=== PATIENT | male | born 1930 | race Caucasian/White ===

== ENCOUNTER 2017-10-18 09:27 | Emergency (ER) | payer MEDICARE ==
[~2017-10-18] VITALS: Ht 172.7 cm; Wt 71.0 kg
[2017-10-18 09:37] VITALS: BP 141/63; PULSE 92; RESP 16; TEMP 98.4; O2SAT 95
[2017-10-18] MEDS ORDERED: ASPI81TA23 PO (10:07)
[2017-10-18] MEDS ORDERED: CALCTAB94 PO (10:07)
[2017-10-18] MEDS ORDERED: OMEP20TA93 PO (10:07)
[2017-10-18] MEDS ORDERED: TRIBTAB9 PO (10:07)
[2017-10-18] MEDS ORDERED: VITA1000 PO (10:07)
[2017-10-18] MEDS ORDERED: SIMV40TA PO (10:07)
--- NOTE | 2017-10-18 10:11 | PD ---
HPI Chief Complaint: Injury Time Seen by Provider: 10:01 Travel History International Travel<30 days: No Contact w/Intl Traveler<30days: No Traveled to known affect area: No History of Present Illness HPI 87-year-old male presents to the emergency department for evaluation of right shoulder injury that occurred during a fall yesterday morning. Patient states he was getting out of the shower was holding onto the towel bar when the towel bar broke causing him to fall. Patient denies any head injury or LOC. No neck pain or back pain. No chest pain or abdominal pain. No nausea, vomiting, diarrhea. He has been ambulatory since the fall. He denies being on anticoagulants. Movement of the right shoulder will exacerbate pain. Moderate severity. No alleviating factors. PFSH Social History Alcohol Use: No Tobacco Use: No Substance Use: No Allergies-Medications (Allergen,Severity, Reaction): Coded Allergies: No Known Allergies (Unverified , 10/18/17) Reported Meds & Prescriptions Reported Meds & Active Scripts Active Reported Calcium 600 (Calcium Carbonate) 600 Mg Calcium (1500 Mg) Tab 600 Mg PO DAILY Vitamin D-1000 (Cholecalciferol) 1,000 Unit Tab 1,000 Units PO DAILY Aspirin EC (Aspirin) 81 Mg Tabdr 81 Mg PO DAILY Tribenzor (Nvtxplrdss-Wxtlbgnvnr-Xrkgepcpemfbuenbuwl) 40-10-25 mg Tab 1 Tab PO DAILY Simvastatin 40 Mg Tab 40 Mg PO HS Omeprazole 20 Mg Tab 20 Mg PO DAILY Review of Systems Except as stated in HPI: all other systems reviewed are Neg Physical Exam Narrative GENERAL: Well-nourished, well-developed elderly male patient, afebrile. SKIN: Focused skin assessment warm/dry. HEAD: Normocephalic. Atraumatic. ENT: Mucosa pink and moist. No erythema or exudates. No uvular edema. No uvular , palatal, or tonsillar deviation. Airway patent. Nasal turbinates appear normal without nasal blood, purulent drainage or septal hematoma. Bilateral tympanic membranes are clear without erythema or perforation. EYES: No scleral icterus. No injection or drainage. NECK: Supple, trachea midline. No JVD or lymphadenopathy. CARDIOVASCULAR: Regular rate and rhythm without murmurs, gallops, or rubs. Right radial pulses 2+. RESPIRATORY: Breath sounds equal bilaterally. No accessory muscle use. Lungs sounds are clear to auscultation. GASTROINTESTINAL: Abdomen soft, non-tender, nondistended. MUSCULOSKELETAL: No cyanosis, or edema. Patient has tenderness over right humeral head. He has reduced range of motion due to pain. BACK: Nontender without obvious deformity. No CVA tenderness. Data Data Last Documented VS Vital Signs Date Time Temp Pulse Resp B/P (MAP) Pulse Ox O2 Delivery O2 Flow Rate FiO2 10/18/17 09:37 98.4 92 16 141/63 (89) 95 Orders Orders Shoulder, Complete (>2vws) (10/18/17 09:40) Acetamin-Hydrocod 325-5 Mg (Ione 5-325 (10/18/17 10:15) MDM Medical Decision Making Medical Screen Exam Complete: Yes Emergency Medical Condition: Yes Medical Record Reviewed: Yes Interpretation(s) x-ray right shoulder - CONCLUSION: Nondisplaced fracture of the acromion. Differential Diagnosis Fracture versus dislocation versus contusion versus sprain Narrative Course 87-year-old presents to the emergency department for evaluation of right shoulder injury that occurred yesterday morning when he fell. X-ray of the right shoulder is ordered and pending. Patient is given Ione 5/325 mg by mouth for pain. X-ray of the right shoulder shows a nondisplaced fracture of the acromion. Patient is placed in a sling. He is instructed to follow-up with an orthopedist. He'll be given the name and number for orthopedist on-call today. He will be given a short-term prescription for Lortab for pain. He verbalizes agreement and understanding. The patient was discharged in stable condition with instructions, including return instructions and follow up instructions. Diagnosis Primary Impression: Nondisplaced fracture of right acromial process Qualified Codes: S42.124A - Nondisplaced fracture of acromial process, right shoulder, initial encounter for closed fracture Referrals: Lilly Awad MD call for appointment Orthopedist call for appointment Patient Instructions: Arm Fracture in Adults (ED), General Instructions Additional Instructions: Wear sling. Ice for 20 minutes 4-5 times daily. Take Ione as directed as needed for pain. Caution this can make you drowsy so do not drive after taking. Follow-up with an orthopedist. Dr. Awad is our orthopedist conference manager today. Return to the emergency department for any acute worsening of symptoms. Med/Other Pt SpecificInfo: Prescription(s) given Scripts Hydrocodone-Acetaminophen (Ione) 5 Mg-325 Mg Tab 1 TAB PO Q6H Y for PAIN, #12 TAB 0 Refills Prov: Rosemarie Abraham 10/18/17 Disposition: 01 DISCHARGE HOME Condition: Stable Rosemarie Abraham Oct 18, 2017 10:11
[2017-10-18] MEDS ORDERED: ACETAMINOPHEN/HYDROcodone 325 MG/5 MG TAB PO ONE (10:15)
--- NOTE | 2017-10-18 11:02 | RADRPT ---
EXAM DATE/TIME: 10/18/2017 10:34 [facility] COMPARISON: No previous studies available for comparison. INDICATIONS : Fell, right shoulder pain, limited ROM, unable to lift arm MEDICAL HISTORY : Polio SURGICAL HISTORY : None. ENCOUNTER: Initial ACUITY: 1 day PAIN SCORE: 5/10 LOCATION: Right shoulder FINDINGS: Multiple views of the right shoulder demonstrate a nondisplaced fracture involving the acromion. Mode rate adjacent soft tissue edema. There is normal glenohumeral alignment. The bones are normal in mine ralization. CONCLUSION: Nondisplaced fracture of the acromion. Jill Dillon MD on October 18, 2017 at 10:59 Board Certified Radiologist. This report was verified electronically.
[2017-10-18] MEDS ORDERED: NORC5TAB PO (11:15)
== END 2017-10-18 11:28 | disposition home or self-care (01) ==
LOC: PHEFT 09:27
DX: S42.124A Nondisplaced fracture of acromial process, right shoulder, initial encounter for closed fracture (principal); W19.XXXA Unspecified fall, initial encounter; Y92.89 Other specified places as the place of occurrence of the external cause; Z79.82 Long term (current) use of aspirin
CPT/HCPCS: 73030; 99283

== ENCOUNTER 2017-10-27 17:36 | Emergency (ER) | payer MEDICARE ==
[~2017-10-27] VITALS: Ht 172.7 cm; Wt 71.0 kg
[~2017-10-27 17:36] MED LIST: ASPI81TA23 PO; CALCTAB94 PO; NORC5TAB PO; OMEP20TA93 PO; SIMV40TA PO; TRIBTAB9 PO; VITA1000 PO
[2017-10-27 17:39] VITALS: BP 139/66; PULSE 79; RESP 17; TEMP 98.5; O2SAT 96
--- NOTE | 2017-10-27 18:07 | PD ---
HPI Chief Complaint: Pain: Acute or Chronic Time Seen by Provider: 18:00 Travel History International Travel<30 days: No Contact w/Intl Traveler<30days: No Traveled to known affect area: No History of Present Illness HPI Patient comes to the emergency department complaining of right wrist pain on the ulnar aspect described as an irritation. Patient reports this started approximately 2-3 days after wearing a sling from a right shoulder fracture. Patient denies anything making this better or worse. Patient has tried using ice and heat with no improvement of symptoms. Denies any fevers or radiation of the pain. Denies any known trauma. Denies any numbness or tingling or decreased range of motion of the ordinary. Patient does report some decreased range of motion with his right thumb secondary to polio. PFSH Past Medical History High Cholesterol: Yes Diminished Hearing: No GERD: Yes Hypertension: Yes Musculoskeletal: Yes (POLIO) ?: Not Past Surgical History Abdominal Surgery: Yes (HERNIA) Social History Alcohol Use: No Tobacco Use: No Substance Use: No Allergies-Medications (Allergen,Severity, Reaction): Coded Allergies: No Known Allergies (Unverified , 10/27/17) Reported Meds & Prescriptions Reported Meds & Active Scripts Active [place] (Hydrocodone-Acetaminophen) 5 Mg-325 Mg Tab 1 Tab PO Q6H PRN Reported Calcium 600 (Calcium Carbonate) 600 Mg Calcium (1500 Mg) Tab 600 Mg PO DAILY Vitamin D-1000 (Cholecalciferol) 1,000 Unit Tab 1,000 Units PO DAILY Aspirin EC (Aspirin) 81 Mg Tabdr 81 Mg PO DAILY Tribenzor (Nfuqbgcwdn-Dijekfsugj-Eovpqggelvfadrhsbgt) 40-10-25 mg Tab 1 Tab PO DAILY Simvastatin 40 Mg Tab 40 Mg PO HS Omeprazole 20 Mg Tab 20 Mg PO DAILY Review of Systems Except as stated in HPI: all other systems reviewed are Neg Physical Exam Narrative GENERAL: Well-developed, well nourished, in no acute distress, and non-ill appearing. SKIN: Focused skin assessment warm and dry. Patient reports tenderness palpation over ulnar aspect of the right wrist. Neurovascularly intact distally. Reports range of motion is normal for him. Capillary refill less than 2 seconds. No crepitus, induration, or erythematous. No signs of infection. HEAD: Atraumatic. Normocephalic. EYES: Pupils equal and round. EOMI. No scleral icterus. No injection or drainage. ENT: No nasal bleeding or discharge. Mucous membranes pink and moist. NECK: Trachea midline. Supple. No nuclear rigidity. CARDIOVASCULAR: Radial pulses 2+, intact, and equal bilaterally. Capillary refill less than 2 seconds. RESPIRATORY: No accessory muscle use. No respiratory distress. MUSCULOSKELETAL: No obvious deformities. No clubbing. No cyanosis. No edema. Decreased range of motion right shoulder secondary to recent fracture. NEUROLOGICAL: Awake and alert. No obvious cranial nerve deficits. Motor grossly within normal limits. Normal speech. PSYCHIATRIC: Appropriate mood and affect; insight and judgment normal. Data Data Last Documented VS Vital Signs Date Time Temp Pulse Resp B/P (MAP) Pulse Ox O2 Delivery O2 Flow Rate FiO2 10/27/17 17:39 98.5 79 17 139/66 (90) 96 Orders Orders Wrist, Complete ([id number]) (10/27/17 ) Ed Discharge Order (10/27/17 19:16) MDM Medical Decision Making Medical Screen Exam Complete: Yes Emergency Medical Condition: Yes Interpretation(s) Last Impressions Wrist X-Ray 10/27/17 0000 Signed Impressions: Service Date/Time: Friday, October 27, 2017 18:37 - CONCLUSION: Arthritic changes and mild erosions involving the wrist as described. No acute bony findings Sohan Khoury MD Differential Diagnosis Fracture, strain, contusion, irritation Narrative Course There is no clinical evidence for fracture. There is no clinical evidence to suspect bony injury by exam. Radiographic examination revealed no fracture seen at this time. No obvious ligamental injury or internal derangement is noted at this time. The distal extremity appears neurovascularly intact, without evidence of neurovascular injury nor compartment syndrome. Tendon exam also was intact. The patient was discharged and given warnings for vascular compromise. The patient is to follow up with primary care provider and/or orthopedics. The patient agrees with plan. Patient in no obvious distress upon re-evaluation. All pertinent Radiology result(s) discussed with patient/family. Any questions/concerns in reference to patient diagnosis/condition discussed and clarified prior to patient's discharge. Reinforced sheer importance of close follow up with patient's primary physician or primary care clinic and/or orthopedic. Instructed patient to return to ED immediately, if symptoms return/worsen. Patient showed understanding of above instructions. Further instructions and recommendations were detailed in discharge paperwork. Patient ambulated without difficulty out of ED at discharge. Diagnosis Primary Impression: Right wrist pain Patient Instructions: Arthralgia (ED), General Instructions Additional Instructions: Follow-up with your primary care physician and/or orthopedics this week for reevaluation. Put some padding between your wrist and the sling. Return to the emergency department if symptoms get worse. Disposition: 01 DISCHARGE HOME Condition: Stable Gael Gil Oct 27, 2017 18:07
--- NOTE | 2017-10-27 19:12 | RADRPT ---
EXAM DATE/TIME: 10/27/2017 18:37 [facility] COMPARISON: No previous studies available for comparison. INDICATIONS : Complains of right wrist pain and swelling. Patient states hurt right shoulder last week and now com [place] of wrist pain. MEDICAL HISTORY : None. SURGICAL HISTORY : None. ENCOUNTER: Initial ACUITY: 1 week PAIN SCORE: 8/10 LOCATION: Right wrist FINDINGS: Chondrocalcinosis is noted. There is a tiny erosion involving the tip of the ulnar styloid and sclero ton change in the lunate at the scapholunate articulation. The bony elements are otherwise intact. T here is no evidence of fracture or dislocation. CONCLUSION: Arthritic changes and mild erosions involving the wrist as described. No acute bony findings Sohan Khoury MD on October 27, 2017 at 19:09 Board Certified Radiologist. This report was verified electronically.
== END 2017-10-27 19:31 | disposition home or self-care (01) ==
LOC: PHEFT 17:36
DX: M25.531 Pain in right wrist (principal); E78.00 Pure hypercholesterolemia, unspecified; I10 Essential (primary) hypertension; K21.9 Gastro-esophageal reflux disease without esophagitis; Z86.12 Personal history of poliomyelitis
CPT/HCPCS: 73110; 99283

== ENCOUNTER 2017-11-01 09:09 | Inpatient (IN) | payer MEDICARE, OTHER ==
[~2017-11-01] VITALS: Ht 172.7 cm; Wt 69.9 kg
[2017-11-01] VITALS (8 sets, daily range): BP systolic 112–157; BP diastolic 62–73; PULSE 75–90; RESP 16–20; TEMP 97–98.4; O2SAT 93–96
[2017-11-01] MEDS ORDERED: DOXY100C PO (10:56)
[2017-11-01 11:33] LABS: AUTOMATED NEUTROPHIL # 12.2 TH/MM3 (1.8-7.7); BASOPHIL # 0.1 TH/MM3 (0-0.2); BASOPHIL % 0.4 % (0.0-2.0); EOSINOPHIL # 0.1 TH/MM3 (0-0.4); EOSINOPHIL % 0.8 % (0.0-4.0); HEMATOCRIT 40.5 % (39.0-51.0); HEMOGLOBIN 13.6 GM/DL (13.0-17.0); LYMPH % 14.2 % (9.0-44.0); LYMPHOCYTE # 2.3 TH/MM3 (1.0-4.8); MEAN CELL VOLUME 86.7 FL (80.0-100.0); MEAN CORPUSCULAR HEMOGLOBIN 29.1 PG (27.0-34.0); MEAN CORPUSCULAR HGB CONC 33.5 % (32.0-36.0); MEAN PLATELET VOLUME 7.7 FL (7.0-11.0); MONO % 8.3 % (0.0-8.0); MONOCYTE # 1.3 TH/MM3 (0-0.9); NEUT % 76.3 % (16.0-70.0); PLATELET COUNT 273 TH/MM3 (150-450); RED BLOOD COUNT 4.67 MIL/MM3 (4.50-5.90); RED CELL DISTRIBUTION WIDTH 12.2 % (11.6-17.2)
[2017-11-01 11:44] LABS: BICARBONATE 23.2 MEQ/L (21.0-32.0); CALCIUM 9.3 MG/DL (8.5-10.1)
[2017-11-01] MEDS ORDERED: VANCOMYCIN INJ 1,000 MG in SODIUM CHLOR 0.9% 250 ML INJ 250 ML IV ONE (11:45)
[2017-11-01 11:48] LABS: CREATININE 1.2 MG/DL (0.60-1.30)
--- NOTE | 2017-11-01 12:01 | RADRPT ---
EXAM DATE/TIME: 11/01/2017 11:43 [facility] COMPARISON: No previous studies available for comparison. INDICATIONS : Complains of pain and redness of 4th and 5th digits of right foot. MEDICAL HISTORY : None. SURGICAL HISTORY : None. ENCOUNTER: Initial ACUITY: 3 days PAIN SCORE: 4/10 LOCATION: Right foot, 4th and 5th digit FINDINGS: Three view examination of the right foot demonstrates no soft tissue swelling, dislocation, or fractu re. The tarsal bones appear intact. The interphalangeal and metatarsophalangeal joints are intact. The calcaneus is intact. Bony mineralization is osteopenic. No foreign bodies are demonstrated. CONCLUSION: Unremarkable exam for patient's age. Nick Jean MD on November 01, 2017 at 11:58 Board Certified Radiologist. This report was verified electronically.
--- NOTE | 2017-11-01 12:03 | PD ---
HPI . Skin infection Chief Complaint: Skin Problem Time Seen by Provider: 11:13 Travel History International Travel<30 days: No Contact w/Intl Traveler<30days: No Traveled to known affect area: No History of Present Illness HPI This patient presents with a chief complaint of infected right fourth and fifth toes. He states that his symptoms all started about 3 weeks ago with some mild discomfort between his toes. He [place] presumptively with athlete's foot and put him on an antifungal cream. He used that for a while but his symptoms got worse rather than better. He was started on doxycycline 3 days ago for cellulitis. Despite that his symptoms have gotten worse rather than better since that time causing him to present to us today. He reports no systemic symptoms such as fever or nausea. He does report some localized swelling. He reports mild pain which she rates 2/10. PFSH Past Medical History High Cholesterol: Yes Diminished Hearing: No GERD: Yes Hypertension: Yes Musculoskeletal: Yes (POLIO) Tetanus Vaccination: < 5 Years Influenza Vaccination: Yes ?: Not Past Surgical History Abdominal Surgery: Yes (HERNIA) Social History Alcohol Use: No Tobacco Use: No Substance Use: No Allergies-Medications (Allergen,Severity, Reaction): Coded Allergies: No Known Allergies (Unverified , 11/01/17) Reported Meds & Prescriptions Reported Meds & Active Scripts Active Reported Doxycycline Hyclate 100 Mg Cap 100 Mg PO BID Calcium 600 (Calcium Carbonate) 600 Mg Calcium (1500 Mg) Tab 600 Mg PO DAILY Vitamin D-1000 (Cholecalciferol) 1,000 Unit Tab 1,000 Units PO DAILY Aspirin EC (Aspirin) 81 Mg Tabdr 81 Mg PO DAILY Tribenzor (Osqagqbvef-Nczaklenwk-Runkxpvbbxewcxztudu) 40-10-25 mg Tab 1 Tab PO DAILY Simvastatin 40 Mg Tab 40 Mg PO HS Omeprazole 20 Mg Tab 20 Mg PO DAILY Review of Systems Except as stated in HPI: all other systems reviewed are Neg General / Constitutional: No: Fever, Chills Skin: Positive Change in Pigmentation Physical Exam Narrative GENERAL: Awake and alert and in no acute distress. SKIN: Warm and dry. He has denuded tissue between the 3rd & 4th and 4th and 5th toes of the right foot. There appears to be some purulent drainage. There is localized tenderness. HEAD: Normocephalic/atraumatic. EYES: Pupils are equal. Extraocular movements are intact. NECK: Normal range of motion. RESPIRATORY: Nonlabored respirations. MUSCULOSKELETAL: Atraumatic. NEUROLOGICAL: Nonfocal. PSYCHIATRIC: Appropriate mood and affect. Data Data Last Documented VS Vital Signs Date Time Temp Pulse Resp B/P (MAP) Pulse Ox O2 Delivery O2 Flow Rate FiO2 11/01/17 12:22 83 18 137/62 (87) 96 Room Air 11/01/17 09:15 98.1 Orders Orders Foot, Complete ([id number]) (11/01/17 ) Complete Blood Count With Diff (11/01/17 11:13) Lactic Acid Sepsis Protocol (11/01/17 11:13) Wound Culture And Gram Stain (11/01/17 11:13) Basic Metabolic Panel (Bmp) (11/01/17 11:13) Iv Access Insert/Monitor (11/01/17 11:13) Vancomycin Inj (Vancomycin Inj) (11/01/17 11:45) Admit Order (Ed Use Only) (11/01/17 ) Vital Signs (Adult) Q4H (11/01/17 13:25) Diet Heart Healthy (11/01/17 Lunch) Activity Oob With Assistance (11/01/17 13:25) Notify Dr: Other (11/01/17 13:25) Labs Laboratory Tests Test 11/01/17 11:25 White Blood Count 16.0 TH/MM3 Red Blood Count 4.67 MIL/MM3 Hemoglobin 13.6 GM/DL Hematocrit 40.5 % Mean Corpuscular Volume 86.7 FL Mean Corpuscular Hemoglobin 29.1 PG Mean Corpuscular Hemoglobin Concent 33.5 % Red Cell Distribution Width 12.2 % Platelet Count 273 TH/MM3 Mean Platelet Volume 7.7 FL Neutrophils (%) (Auto) 76.3 % Lymphocytes (%) (Auto) 14.2 % Monocytes (%) (Auto) 8.3 % Eosinophils (%) (Auto) 0.8 % Basophils (%) (Auto) 0.4 % Neutrophils # (Auto) 12.2 TH/MM3 Lymphocytes # (Auto) 2.3 TH/MM3 Monocytes # (Auto) 1.3 TH/MM3 Eosinophils # (Auto) 0.1 TH/MM3 Basophils # (Auto) 0.1 TH/MM3 CBC Comment DIFF FINAL Differential Comment Blood Urea Nitrogen 20 MG/DL Creatinine 1.20 MG/DL Random Glucose 119 MG/DL Calcium Level 9.3 MG/DL Sodium Level 136 MEQ/L Potassium Level 3.7 MEQ/L Chloride Level 102 MEQ/L Carbon Dioxide Level 23.2 MEQ/L Anion Gap 11 MEQ/L Estimat Glomerular Filtration Rate 57 ML/MIN Lactic Acid Level 2.0 mmol/L MDM Medical Decision Making Medical Screen Exam Complete: Yes Emergency Medical Condition: Yes Medical Record Reviewed: Yes (the patient has only had sporadic visits to us mainly for orthopedic injuries.) Differential Diagnosis My differential diagnosis includes but is not limited to localized wound infection, cellulitis, abscess Narrative Course This patient presents with worsening cellulitis of the right fourth and fifth toes. His symptoms have been ongoing for 3 weeks and were initially attributed to athlete's foot. He was started on antibiotics 3 days ago but has gotten worse rather than better. I will give him a dose of vancomycin. An x-ray of the foot is pending to look for osteomyelitis. CBC and lactic acid are also pending to rule out systemic infection. CBC & BMP Diagram 11/01/17 11:25 Calcium Level 9.3 LA 2.0 Last Impressions Foot X-Ray 11/01/17 0000 Signed Impressions: Service Date/Time: Wednesday, November 01, 2017 11:43 - CONCLUSION: Unremarkable exam for patient's age. Nick Jean MD This patient will be admitted for failed outpatient therapy of cellulitis. Physician Communication Physician Communication Dr. [place] Diagnosis Primary Impression: Cellulitis Qualified Codes: L03.031 - Cellulitis of right toe Admitting Information Admitting Physician Requests: Admit Condition: Stable Erica Parker MD Nov 01, 2017 12:02
[2017-11-01] MEDS ORDERED: GADODIAMIDE PF 287 MG/ML 20 ML VIAL (for RAD MRI) IVCONTRAST ONE (13:28)
[2017-11-01] MEDS ORDERED: ONDANSETRON HCL 4 MG/2 ML VIAL IVP PRN (13:30)
[2017-11-01] MEDS ORDERED: ACETAMINOPHEN 325 MG TAB PO PRN (13:30)
[2017-11-01] MEDS ORDERED: MAGNESIUM HYDROXIDE SUSP 30 ML CUP PO PRN (13:30)
[2017-11-01] MEDS ORDERED: VANCOMYCIN INJ 1,100 MG in SODIUM CHLOR 0.9% 250 ML INJ 250 ML IV SCH (13:30)
[2017-11-01] MEDS ORDERED: Vancomycin Consult Pharmacy 1 EA OTHER SCH (13:30)
[2017-11-01] MEDS: ENOXAPARIN SODIUM 40 MG/0.4 ML SYRINGE SQ SCH (15:13)
[2017-11-01] MEDS: ACETAMINOPHEN/HYDROcodone 325 MG/5 MG TAB PO PRN ×2 (16:48→22:48)
[2017-11-01] MEDS ORDERED: DEXTROSE 50% IN WATER 50 ML VIAL(D50) IV PUSH PRN (18:15)
[2017-11-01] MEDS ORDERED: GLUCAGON 1 MG/ML VIAL OTHER PRN (18:15)
--- NOTE | 2017-11-01 18:27 | HHI.HP ---
[facility] Non-Staff Admission Diagnosis Cellulitis, right 4th and 5th toes Diagnoses: (1) Cellulitis Diagnosis: Principal Chief Complaint: Right third and fourth and fifth digit toe cellulitis Failed outpatient antibiotics Travel History International Travel<30 Days: No Contact w/Intl Traveler <30 Da: No Traveled to Known Affected Are: No History of Present Illness Written by Irish Mckay, acting as scribe for Dr. Washington on 11/01/17 at 18:18. This is a 87-year-old male patient with a known medical history of hyperlipidemia, hypertension, GERD and polio who presented to the ED with right third, fourth and fifth digit cellulitis failed outpatient antibiotic treatment. Patient states that his symptoms started roughly 3 weeks ago with some mild discomfort between his toes, called his primary care doctor who started him on an antifungal cream. For a week or so the symptoms continued to persist and even worsen which brought him to the wheel polisher who started him on doxycycline 3 days ago for cellulitis. Patient states his toes have worsened which led to his presentation. Patient denies any recent illness including fever, chills, cough, shortness of breath, abdominal pain, nausea, vomiting, diarrhea or dysuria. Patient's denies any pain. Does have a history of polio and left leg with history of surgery, recent fall breaking his right acromion process which did not require surgery. 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 Ankle fusion Left leg polio fusion 1946 Reported Medications Active Reported Doxycycline Hyclate 100 Mg Cap 100 Mg PO BID Calcium 600 (Calcium Carbonate) 600 Mg Calcium (1500 Mg) Tab 600 Mg PO DAILY Vitamin D-1000 (Cholecalciferol) 1,000 Unit Tab 1,000 Units PO DAILY Aspirin EC (Aspirin) 81 Mg Tabdr 81 Mg PO DAILY Tribenzor (Zxfuipsunp-Qnhsexeytr-Ghaadybfrbiuzozrxuo) 40-10-25 mg Tab 1 Tab PO DAILY Simvastatin 40 Mg Tab 40 Mg PO HS Omeprazole 20 Mg Tab 20 Mg PO DAILY Allergies: Coded Allergies: No Known Allergies (Unverified , 11/01/17) Active Ordered Medications Current Medications Medications (Trade) Dose Ordered Sig/Martir Route Start Time Stop Time Status Last Admin Pharmacy Profile Note 0 ml @ 0 mls/hr UNSCH OTHER 11/01/17 13:30 (Tylenol) 650 mg Q4H PRN PO 11/01/17 13:30 (Zofran Inj) 4 mg Q6H PRN IVP 11/01/17 13:30 (Lovenox Inj) 40 mg Q24H SQ 11/01/17 14:00 11/01/17 15:13 ([place] 5-325 Mg) 1 tab Q4H PRN PO 11/01/17 13:30 11/01/17 16:48 ([place] 7.5-325 Mg) 1 tab Q4H PRN PO 11/01/17 13:30 (Adriana-Colace) 1 tab BID PO 11/01/17 21:00 (Milk Of Magnesia Liq) 30 ml Q12H PRN PO 11/01/17 13:30 Vancomycin HCl 1000 mg/Sodium Chloride 250 ml @ 250 mls/hr Q24H IV 11/02/17 12:00 Miscellaneous Information SPECIFIC LAB TO BE BRIT... ONCE ONCE .XX 11/04/17 11:45 11/04/17 11:46 (NovoLOG SUPPLEMENTAL SCALE) 1 ACHS SLIDING SCALE SQ 11/01/17 21:00 UNV (Glucagon Inj) 1 mg UNSCH PRN OTHER 11/01/17 18:15 UNV (D50w (Vial) Inj) 50 ml UNSCH PRN IV PUSH 11/01/17 18:15 UNV Family History Maternal history significant for stroke. Social History Denies any history of tobacco use, alcohol or illicit drug use. Physical Exam Vital Signs Vital Signs Date Time Temp Pulse Resp B/P (MAP) Pulse Ox O2 Delivery O2 Flow Rate FiO2 11/01/17 18:08 18 11/01/17 14:38 96 21 11/01/17 14:25 97.0 80 18 137/66 (89) 96 11/01/17 14:06 11/01/17 12:22 83 18 137/62 (87) 96 Room Air 11/01/17 09:15 98.1 90 16 157/67 (97) 96 Physical Exam GENERAL: Well-developed, well-nourished patient in [place]. SKIN: Warm and dry. No rash. Right third, fourth and fifth digit and maceration and webspace, erythema. HEAD: Normocephalic. Atraumatic. EYES: Pupils equal and round. No scleral icterus. No injection or drainage. ENT: No nasal bleeding or discharge. Mucous membranes pink and moist. NECK: Supple. Trachea midline. CARDIOVASCULAR: Regular rate and rhythm. S1, S2 noted. No murmur appreciated. RESPIRATORY: No accessory muscle use. Clear to auscultation. Breath sounds equal bilaterally. GASTROINTESTINAL: Abdomen soft, non-tender, nondistended. Normoactive bowel sounds x4. NEUROLOGICAL: Awake and alert. No obvious cranial nerve deficits. Motor grossly within normal limits. 5/5 muscle strength in bilateral upper and lower extremities. Normal speech. PSYCHIATRIC: Appropriate mood and affect; insight and judgment normal. Laboratory Laboratory Tests Test 11/01/17 11:25 White Blood Count 16.0 Red Blood Count 4.67 Hemoglobin 13.6 Hematocrit 40.5 Mean Corpuscular Volume 86.7 Mean Corpuscular Hemoglobin 29.1 Mean Corpuscular Hemoglobin Concent 33.5 Red Cell Distribution Width 12.2 Platelet Count 273 Mean Platelet Volume 7.7 Neutrophils (%) (Auto) 76.3 Lymphocytes (%) (Auto) 14.2 Monocytes (%) (Auto) 8.3 Eosinophils (%) (Auto) 0.8 Basophils (%) (Auto) 0.4 Neutrophils # (Auto) 12.2 Lymphocytes # (Auto) 2.3 Monocytes # (Auto) 1.3 Eosinophils # (Auto) 0.1 Basophils # (Auto) 0.1 CBC Comment DIFF FINAL Differential Comment Blood Urea Nitrogen 20 Creatinine 1.20 Random Glucose 119 Calcium Level 9.3 Sodium Level 136 Potassium Level 3.7 Chloride Level 102 Carbon Dioxide Level 23.2 Anion Gap 11 Estimat Glomerular Filtration Rate 57 Lactic Acid Level 2.0 Date/Time Source Procedure Growth Status 11/01/17 11:23 Wound Foot Gram Stain Pending Received 11/01/17 11:23 Wound Foot Wound Culture Pending Received Result Diagram: 11/01/17 1125 11/01/17 1125 Imaging Last Impressions Foot X-Ray 11/01/17 0000 Signed Impressions: Service Date/Time: Wednesday, November 01, 2017 11:43 - CONCLUSION: Unremarkable exam for patient's age. Nick Jean MD Septic Shock Reassessment Septic shock perfusion: reassessment completed Caprini VTE Risk Assessment Caprini VTE Risk Assessment: Mod/High Risk (score >= 2) Caprini Risk Assessment Model Point Value = 1 Point Value = 2 Point Value = 3 Point Value = 5 Age 41-60 Minor surgery BMI > 25 kg/m2 Swollen legs Varicose veins or History of unexplained or recurrent spontaneous Oral contraceptives or hormone replacement Sepsis (< 1 month) Serious lung disease, including pneumonia (< 1 month) Abnormal pulmonary function Acute myocardial infarction Congestive heart failure (< 1 month) History of inflammatory bowel disease Medical patient at bed rest Age 61-74 Arthroscopic surgery Major open surgery (> 45 min) Laparoscopic surgery (> 45 min) Malignancy Confined to bed (> 72 hours) Immobilizing plaster cast Central venous access Age >= 75 History of VTE Family history of VTE Factor V Leiden Prothrombin [id number] Lupus anticoagulant Anticardiolipin antibodies Elevated serum homocysteine Heparin-induced thrombocytopenia Other congenital or acquired thrombophilia Stroke (< 1 month) Elective arthroplasty Hip, pelvis, or leg fracture Acute spinal cord injury (< 1 month) Prophylaxis Regimen Total Risk Factor Score Risk Level Prophylaxis Regimen 0-1 Low Early ambulation 2 Moderate Order ONE of the following: *Sequential Compression Device (SCD) *Heparin 5000 units SQ BID 3-4 Higher Order ONE of the following medications: *Heparin 5000 units SQ TID *Enoxaparin/Lovenox 40 mg SQ daily (WT < 150 kg, CrCl > 30 mL/min) *Enoxaparin/Lovenox 30 mg SQ daily (WT < 150 kg, CrCl > 10-29 mL/min) *Enoxaparin/Lovenox 30 mg SQ BID (WT < 150 kg, CrCl > 30 mL/min) AND/OR *Sequential Compression Device (SCD) 5 or more Highest Order ONE of the following medications: *Heparin 5000 units SQ TID (Preferred with Epidurals) *Enoxaparin/Lovenox 40 mg SQ daily (WT < 150 kg, CrCl > 30 mL/min) *Enoxaparin/Lovenox 30 mg SQ daily (WT < 150 kg, CrCl > 10-29 mL/min) *Enoxaparin/Lovenox 30 mg SQ BID (WT < 150 kg, CrCl > 30 mL/min) AND *Sequential Compression Device (SCD) Assessment and Plan Assessment and Plan This is a 87-year-old male patient with a known medical history of hyperlipidemia, hypertension, GERD and polio who presented to the ED with right third, fourth and fifth digit cellulitis failed outpatient antibiotic treatment. Cellulitis of the right third, fourth and fifth digit toes Failed outpatient antibiotic therapy With leukocytosis, white blood cell 16. Lactic acid 2.0. Wound culture ordered and pending. Monitor for infection. Afebrile. Vital signs are stable. Right foot x-ray reviewed showing unremarkable exam. Podiatry consulted, appreciate further input and recommendations. Started on vancomycin IV. Pharmacy to dose. Control pain, [place] available p.o. for pain scale. Hypertension, chronic: Monitor BP trends. Continue p.o. home medications. Hyperlipidemia, chronic: Continue home statin. DVT prophylaxis: SCDs. Lovenox. This note was transcribed by scribabdon [[email or web address]]. I, Dr. Gordy Washington personally performed the history, physical exam, and medical decision making; and confirmed the accuracy of the information in the transcribed note. Authenticated by Dr. Gordy Washington on 11/01/17 at 18:44. Problem Qualifiers (1) Cellulitis: Qualified Codes: L03.031 - Cellulitis of right toe Irish Mckay Nov 01, 2017 18:27 Gordy Washington MD Nov 01, 2017 18:44
[2017-11-01] MEDS: INSULIN ASPART SUPPLEMENTAL SCALE SQ SCH (21:00)
[2017-11-01] MEDS: DOCUSATE SODIUM 50 MG/SENNA 8.6 MG TAB PO SCH (21:00)
[2017-11-01] MEDS: PRAVASTATIN SOD 80 MG TAB PO SCH (21:53)
[2017-11-02] VITALS (8 sets, daily range): BP systolic 99–152; BP diastolic 56–83; PULSE 66–84; RESP 16–20; TEMP 96.3–98.2; O2SAT 93–95
[2017-11-02] MEDS: INSULIN ASPART SUPPLEMENTAL SCALE SQ SCH ×4 (07:59→21:00)
[2017-11-02] MEDS: DOCUSATE SODIUM 50 MG/SENNA 8.6 MG TAB PO SCH ×2 (08:22→21:00)
[2017-11-02] MEDS: LOSARTAN 50 MG TAB PO SCH (08:22)
[2017-11-02] MEDS: ASPIRIN EC 81 MG TABEC PO SCH (08:22)
[2017-11-02] MEDS: CHOLECALCIFEROL (VIT D3) 1000 UNIT TAB PO SCH (08:22)
[2017-11-02] MEDS: PANTOPRAZOLE SOD 20 MG DELAYED RELEASE TAB PO SCH (08:22)
[2017-11-02] MEDS: CALCIUM CARBONATE 1.25 GM (CA 500 MG) TAB PO SCH (08:22)
[2017-11-02] MEDS: HYDROCHLOROTHIAZIDE 25 MG TAB PO SCH (08:22)
--- NOTE | 2017-11-02 08:29 | MB ---
cc: ANGELA URIOSTEGUI DPM DATE OF CONSULTATION: 11/02/2017 REASON FOR CONSULTATION: Worsening right foot infection. HISTORY OF PRESENT ILLNESS This is a 87-year-old male who is known to my partner Dr. Lassiter. He was having worsening pain and drainage after receiving oral antibiotics. His actually called our office yesterday. I reviewed the patient's clinical findings by phone, it sounded bad, so the patient should go to the hospital. Currently I am seeing the patient bedside. He is having mild right foot pain. He is resting comfortably. PAST MEDICAL HISTORY Positive for: 1. Hypertension. 2. Hyperlipidemia. 3. Polio. 4. GERD. PAST SURGICAL HISTORY 1. Hernia repair. 2. Liver biopsy with hepatitis B. 3. Ankle fusion of the left. 4. He has a current orthopedic condition, right acromion process that did not require surgery. MEDICATION Reported outpatient medications: 1. Doxycycline. 2. Calcium. 3. Vitamin D. 4. Aspirin. 5. Tribenzor. 6. Simvastatin. 7. Omeprazole. 8. Currently inpatient antibiotic of vancomycin. Please see complete med list in chart. PHYSICAL EXAMINATION VITAL SIGNS: Temperature 97.9, pulse rate 66, respiratory rate 16, blood pressure 99/62. He is sating 95% on room air. This is an alert and oriented gentleman seen bedside exhibiting nonlabored respirations. The right lower extremity is examined. There is no serous purulent third and fourth digit interspace but there is significant pain, there is moderate edema, redness does not really extend from the interspace. The patient is capable of moving the digits. Pulses are palpable. Sensation is intact. The left lower extremity, there limited range of motion of the ankle and hind-foot. There is a shortened foot stature with obvious signs of muscle wasting of the distal leg, however, no compromise of the softened tissue envelope. LABORATORY FINDINGS White blood cells 16, hemoglobin and hematocrit 13 and 40. Chem-7 sodium 136, potassium 3.7, chloride 102, C02 23.2, BUN 20 and glucose 119. IMAGING FINDINGS Foot x-ray unremarkable, no signs of gas within the tissue, foreign body. MRI ordered. Microbial findings ordered and pending. ASSESSMENT AND PLAN Right foot cellulitis with possible interspace abscess. Dilute Betadine wet-to-dry will be performed at the interspace. Will continue to follow the culture and the patient's clinical progress. I recommend adding Levaquin to cover pseudomonas. This appears to be interspace infection which may correlate with pseudomonas. The patient may need stronger IV pending on the culture. Will continue to follow along with this patient. No surgery planned at this point, however, if the MRI shows deep abscess, we may need to intervene. The patient likely will need minimum of 1-2 days of IV antibiotics until we get this under control. JANIE Benavidez/MAJO /7:10 AM /8:41 AM MTDIrlanda
[2017-11-02 08:54] LABS: AUTOMATED NEUTROPHIL # 9.1 TH/MM3 (1.8-7.7); BASOPHIL % 0.2 % (0.0-2.0); EOSINOPHIL # 0.1 TH/MM3 (0-0.4); EOSINOPHIL % 0.8 % (0.0-4.0); HEMATOCRIT 39.2 % (39.0-51.0); HEMOGLOBIN 13.4 GM/DL (13.0-17.0); LYMPHOCYTE # 2.1 TH/MM3 (1.0-4.8); MEAN CELL VOLUME 86.5 FL (80.0-100.0); MEAN CORPUSCULAR HEMOGLOBIN 29.6 PG (27.0-34.0); MEAN CORPUSCULAR HGB CONC 34.3 % (32.0-36.0); MEAN PLATELET VOLUME 8.1 FL (7.0-11.0); MONO % 8.3 % (0.0-8.0); NEUT % 73.7 % (16.0-70.0); PLATELET COUNT 281 TH/MM3 (150-450); RED BLOOD COUNT 4.54 MIL/MM3 (4.50-5.90); RED CELL DISTRIBUTION WIDTH 12.4 % (11.6-17.2); WHITE BLOOD COUNT 12.3 TH/MM3 (4.0-11.0)
[2017-11-02] MEDS ORDERED: NON-FORMULARY DRUG (Olmesartan-Amlodipine-Hydrochlorothiazide (Tribenzor) 1 TAB) PO SCH (09:00)
[2017-11-02 09:01] LABS: BICARBONATE 24.2 MEQ/L (21.0-32.0)
[2017-11-02 09:04] LABS: CREATININE 1.1 MG/DL (0.60-1.30)
[2017-11-02] MEDS: LEVOFLOXACIN 750 MG PREMIX INJ 150 ML IV SCH (09:55)
--- NOTE | 2017-11-02 11:56 | RADRPT ---
EXAM DATE/TIME: 11/02/2017 10:44 [place] COMPARISON: FOOT RIGHT COMPLETE ([id number]), November 01, 2017, 11:43. INDICATIONS : Osteomyelitis. Pain and redness of 4th and 5th digits of right foot CONTRAST: 14 cc Omniscan (gadodiamide) IV MEDICAL HISTORY : Hypertension. SURGICAL HISTORY : Inguinal hernia repair. Orthopedic to left ankle. ENCOUNTER: Initial ACUITY: 2 day PAIN SCORE: 3/10 LOCATION: Right foot TECHNIQUE: Multiplanar, multisequence MRI examination was performed without contrast and after the intravenous a dministration of gadolinium. FINDINGS: BONE/CARTILAGE: Bone marrow signal is homogeneous. Articular cartilage signal is within normal limits. TENDONS: All of the visualized tendons are intact. MISCELLANEOUS: There is edema and enhancement seen at the fourth and fifth digits being most prominent at the distal aspect of the fifth digit surrounding the distal phalanx but not involving the bony structures. POST-CONTRAST: There are no abnormal areas of enhancement on the post-contrast images are seen within the bony struc tures. There is some enhancement within the soft tissue at the fourth and fifth digits. CONCLUSION: Soft tissue swelling and laboratory change/enhancement at the fourth and fifth digits without osteomy elitis seen. Sohan Snow MD on November 02, 2017 at 11:46 Board Certified Radiologist. This report was verified electronically.
[2017-11-02 12:24] LABS: HEMOGLOBIN A1C 5.5 % (4.3-6.0)
[2017-11-02] MEDS: VANCOMYCIN 1,000 MG/NS 250 ML IV SCH ×2 (12:44)
--- NOTE | 2017-11-02 13:24 | HHI.PR ---
Subjective Remarks "I am good "patient is very pleasant, denied fever or chills, his right foot in gauze seen by podiatry and to continue iv antibiotic and follow closely Objective Vitals Vital Signs Date Time Temp Pulse Resp B/P (MAP) Pulse Ox O2 Delivery O2 Flow Rate FiO2 11/02/17 12:00 98.2 77 20 117/56 (76) 94 11/02/17 11:36 17 11/02/17 08:27 94 11/02/17 07:59 96.3 84 20 152/70 (97) 94 11/02/17 04:22 97.9 66 16 99/62 (74) 95 11/02/17 00:43 98.2 69 18 105/63 (77) 94 11/01/17 22:00 93 21 11/01/17 21:00 80 11/01/17 19:55 98.1 75 16 112/73 (86) 95 11/01/17 18:08 18 11/01/17 15:50 98.4 79 20 130/62 (84) 93 11/01/17 14:38 96 21 11/01/17 14:25 97.0 80 18 137/66 (89) 96 11/01/17 14:06 I/O 11/01/17 11/01/17 11/01/17 11/02/17 11/02/17 11/02/17 07:00 15:00 23:00 07:00 15:00 23:00 Intake Total 250 ml 240 ml Output Total 200 ml Balance 250 ml 240 ml -200 ml Intake Oral 240 ml IV Total 250 ml Output Urine Total 200 ml # Voids 2 # Bowel Movements 0 Result Diagram: 11/02/17 0835 11/02/17 0835 Objective Remarks GENERAL: Well-developed, well-nourished patient in [facility]. SKIN: Warm and dry. No rash. Right third, fourth and fifth digit and maceration and webspace, erythema. HEAD: Normocephalic. Atraumatic. EYES: Pupils equal and round. No scleral icterus. No injection or drainage. ENT: No nasal bleeding or discharge. Mucous membranes pink and moist. NECK: Supple. Trachea midline. CARDIOVASCULAR: Regular rate and rhythm. S1, S2 noted. No murmur appreciated. RESPIRATORY: No accessory muscle use. Clear to auscultation. Breath sounds equal bilaterally. GASTROINTESTINAL: Abdomen soft, non-tender, nondistended. Normoactive bowel sounds x4. NEUROLOGICAL: Awake and alert. No obvious cranial nerve deficits. Motor grossly within normal limits. 5/5 muscle strength in bilateral upper and lower extremities. Normal speech. PSYCHIATRIC: Appropriate mood and affect; insight and judgment normal. A/P Problem List: (1) Cellulitis ICD Code: L03.90 - Cellulitis, unspecified Status: Acute Assessment and Plan This is a 87-year-old male patient with a known medical history of hyperlipidemia, hypertension, GERD and polio who presented to the ED with right third, fourth and fifth digit cellulitis failed outpatient antibiotic treatment. Cellulitis of the right third, fourth and fifth digit toes Failed outpatient antibiotic therapy With leukocytosis, white blood cell 16. Lactic acid 2.0. Wound culture ordered and pending. Monitor for infection. Afebrile. Vital signs are stable. Right foot x-ray reviewed showing unremarkable exam. Podiatry consulted, appreciate further input and recommendations. Would continue on vancomycin and Levaquin to cover Pseudomonas, further workup/ debridement per podiatry Started on vancomycin IV. Pharmacy to dose. Control pain, [place] available p.o. for pain scale. Hypertension, chronic: Monitor BP trends. Continue p.o. home medications. Hyperlipidemia, chronic: Continue home statin. DVT prophylaxis: SCDs. Lovenox. Problem Qualifiers (1) Cellulitis: Qualified Codes: L03.031 - Cellulitis of right toe Gordy Washington MD Nov 02, 2017 13:24
[2017-11-02] MEDS: ENOXAPARIN SODIUM 40 MG/0.4 ML SYRINGE SQ SCH (15:45)
[2017-11-02] MEDS: PRAVASTATIN SOD 80 MG TAB PO SCH (21:08)
[2017-11-02] MEDS: ACETAMINOPHEN/HYDROcodone 325 MG/5 MG TAB PO PRN (21:44)
[2017-11-03] VITALS (7 sets, daily range): BP systolic 123–147; BP diastolic 61–78; PULSE 71–89; RESP 17–20; TEMP 96.3–97.8; O2SAT 95–96
[2017-11-03] MEDS: INSULIN ASPART SUPPLEMENTAL SCALE SQ SCH (08:00)
--- NOTE | 2017-11-03 08:02 | HHI.PR ---
Subjective Remarks Patient seen bedside this a.m. with present. Patient denies any nausea vomiting fevers or chills. Would like to go home today. Objective Vital Signs Date Time Temp Pulse Resp B/P (MAP) Pulse Ox O2 Delivery O2 Flow Rate FiO2 11/03/17 04:00 97.5 80 17 128/78 (95) 96 11/03/17 00:00 97.7 79 18 131/76 (94) 95 11/02/17 20:00 93 21 11/02/17 20:00 97.5 84 16 137/83 (101) 94 11/02/17 15:55 98.1 82 20 142/62 (88) 95 11/02/17 12:00 98.2 77 20 117/56 (76) 94 11/02/17 11:36 17 11/02/17 08:27 94 11/02/17 07:59 96.3 84 20 152/70 (97) 94 I/O 11/02/17 11/02/17 11/02/17 11/03/17 11/03/17 11/03/17 07:00 15:00 23:00 07:00 15:00 23:00 Intake Total 580 ml 360 ml Output Total 200 ml 600 ml Balance -200 ml 580 ml 360 ml -600 ml Intake Oral 580 ml 360 ml Output Urine Total 200 ml 600 ml # Voids 2 2 2 # Bowel Movements 0 1 1 Result Diagram: 11/02/17 0835 11/02/17 0835 Imaging Last Impressions Foot MRI 11/02/17 0000 Signed Impressions: Service Date/Time: Thursday, November 02, 2017 10:44 - CONCLUSION: Soft tissue swelling and laboratory change/enhancement at the fourth and fifth digits without osteomyelitis seen. Sohan Snow MD Foot X-Ray 11/01/17 0000 Signed Impressions: Service Date/Time: Wednesday, November 01, 2017 11:43 - CONCLUSION: Unremarkable exam for patient's age. Nick Jean MD Other Results Microbiology Date/Time Source Procedure Growth Status 11/01/17 11:23 Wound Foot Gram Stain - Final Resulted 11/01/17 11:23 Wound Culture - Preliminary Pseudomonas Species Resulted Objective Remarks Lower extremity physical exam: Vascular: Dorsalis pedis 1/4 , posterior tibial 1/4. Capillary refill time within normal limits to digits 5 bilateral foot. Edema present in resolving right foot Neuro: Gross sensation intact to bilateral lower extremity. Pinpoint sensation within normal limits. No hyperalgesia noted to bilateral lower extremity Dermatology: Normal temperature and turgor to bilateral lower extremity. Interdigital maceration with ulceration noted to second, third, fourth interspace; fourth interspace most severely affected. No open sinus or portal noted, no probe to bone noted. Musculoskeletal: Tender to palpation to right interdigital spaces to 3 and 4. Hammertoes noted 2 through 5 right foot. Medications and IVs Current Medications Medications (Trade) Dose Ordered Sig/Martir Route Start Time Stop Time Status Last Admin Pharmacy Profile Note 0 ml @ 0 mls/hr UNSCH OTHER 11/01/17 13:30 (Tylenol) 650 mg Q4H PRN PO 11/01/17 13:30 (Zofran Inj) 4 mg Q6H PRN IVP 11/01/17 13:30 (Lovenox Inj) 40 mg Q24H SQ 11/01/17 14:00 11/02/17 15:45 ([place] 5-325 Mg) 1 tab Q4H PRN PO 11/01/17 13:30 11/02/17 21:44 ([place] 7.5-325 Mg) 1 tab Q4H PRN PO 11/01/17 13:30 (Adriana-Colace) 1 tab BID PO 11/01/17 21:00 (Milk Of Magnesia Liq) 30 ml Q12H PRN PO 11/01/17 13:30 Vancomycin HCl 1000 mg/Sodium Chloride 250 ml @ 250 mls/hr Q24H IV 11/02/17 12:00 11/02/17 12:44 Miscellaneous Information SPECIFIC LAB TO BE BRIT... ONCE ONCE .XX 11/04/17 11:45 11/04/17 11:46 (NovoLOG SUPPLEMENTAL SCALE) 1 ACHS SLIDING SCALE SQ 11/01/17 21:00 (Glucagon Inj) 1 mg UNSCH PRN OTHER 11/01/17 18:15 (D50w (Vial) Inj) 50 ml UNSCH PRN IV PUSH 11/01/17 18:15 (Ecotrin Ec) 81 mg DAILY PO 11/02/17 09:00 11/02/17 08:22 (Vitamin D3) 1,000 units DAILY PO 11/02/17 09:00 11/02/17 08:22 (Oscal) 500 mg DAILY PO 11/02/17 09:00 11/02/17 08:22 (Protonix) 20 mg DAILY PO 11/02/17 09:00 11/02/17 08:22 (Pravachol) 80 mg HS PO 11/01/17 21:00 11/02/17 21:08 (Cozaar) 100 mg DAILY PO 11/02/17 09:00 11/02/17 08:22 (Hydrodiuril) 25 mg DAILY PO 11/02/17 09:00 11/02/17 08:22 (Norvasc) 10 mg DAILY PO 11/02/17 09:00 11/02/17 08:22 Levofloxacin/ Dextrose 150 ml @ 100 mls/hr Q24H IV 11/02/17 09:00 11/02/17 09:55 Assessment and Plan Assessment and Plan 87-year-old male with right foot infection Patient examined and evaluated Culture growing Pseudomonas Okay to DC by podiatry tomorrow, patient would benefit from 1 more day of IV antibiotics Recommend oral antibiotic transition possible Levaquin; Discussed with Irish ALARCON Recommend home health care with trilogy -dressings to consist of Silvadene as it does have pseudomonal coverage and dry sterile dressing MRI negative for abscess, clinical improvement noted and no suspicion for abscess. MRI also negative for any osteomyelitis. Patient is to follow-up with Dr. Lassiter in [facility], as he states that who he usually sees and who he would like to follow-up with Discussed Condition With Irish Mullins DPM Nov 03, 2017 08:02
[2017-11-03] MEDS: ACETAMINOPHEN/HYDROcodone 325 MG/7.5 MG TAB PO PRN ×2 (08:03→12:44)
--- NOTE | 2017-11-03 08:09 | HHI.FF ---
Face to Face Verification Diagnosis: (1) Cellulitis Home Health Nursing Order: Wound care and dressing changes Instructions: please perform dressing changes to right foot consisting of Silvadene to second , third, and fourth interspaces. Cleansed with normal saline. Dressing changes to be performed daily. Okay for home health care to perform dressing changes 3 times a week. I have seen patient Lele Moore on 11/03/17. My clinical findings support the need for the requested home health care services because: High risk of falls Infection w/ risk of complications I certify that my clinical findings support that this patient is homebound because: Unsteady gait/balance Unsafe to leave home unassisted Irish Swartz DPM Nov 03, 2017 08:09
[2017-11-03] MEDS ORDERED: GETGO ROLLING W1 MI1 (08:41)
--- NOTE | 2017-11-03 08:42 | HHI.FF ---
Face to Face Verification Diagnosis: (1) Cellulitis Physical Therapy Order: Evaluate and Treat, Improve ambulation, Strength and gait training Home Health Nursing Order: Medical education Signs/symptoms of disease process Medication education-adverse effect Wound care and dressing changes Nursing assessment with vital signs I have seen patient Lele Moore on 11/03/17. My clinical findings support the need for the requested home health care services because: Deconditioned w/ increased weakness Limited ability to care for self I certify that my clinical findings support that this patient is homebound because: Unsteady gait/balance Irish Mckay Nov 03, 2017 08:42
--- NOTE | 2017-11-03 08:44 | HHI.PR ---
Subjective Remarks Follow-up cellulitis. Patient seen and examined, sitting comfortably in chair in no apparent distress. Patient denies any change in clinical condition. Does state that pain is controlled with medication regimen. Podiatry in today to see patient, dressing changed and patient complained of increasing pain. Vital signs are stable. Afebrile. Objective Vitals Vital Signs Date Time Temp Pulse Resp B/P (MAP) Pulse Ox O2 Delivery O2 Flow Rate FiO2 11/03/17 07:50 97.1 71 20 147/64 (91) 95 11/03/17 04:00 97.5 80 17 128/78 (95) 96 11/03/17 00:00 97.7 79 18 131/76 (94) 95 11/02/17 20:00 93 21 11/02/17 20:00 97.5 84 16 137/83 (101) 94 11/02/17 15:55 98.1 82 20 142/62 (88) 95 11/02/17 12:00 98.2 77 20 117/56 (76) 94 11/02/17 11:36 17 I/O 11/02/17 11/02/17 11/02/17 11/03/17 11/03/17 11/03/17 06:59 14:59 22:59 06:59 14:59 22:59 Intake Total 580 ml 360 ml Output Total 200 ml 600 ml Balance -200 ml 580 ml 360 ml -600 ml Intake Oral 580 ml 360 ml Output Urine Total 200 ml 600 ml # Voids 1 3 2 # Bowel Movements 0 1 1 Result Diagram: 11/02/17 0835 11/02/17 0835 Imaging Last Impressions Foot MRI 11/02/17 0000 Signed Impressions: Service Date/Time: Thursday, November 02, 2017 10:44 - CONCLUSION: Soft tissue swelling and laboratory change/enhancement at the fourth and fifth digits without osteomyelitis seen. Sohan Snow MD Foot X-Ray 11/01/17 0000 Signed Impressions: Service Date/Time: Wednesday, November 01, 2017 11:43 - CONCLUSION: Unremarkable exam for patient's age. Nick Jean MD Objective Remarks GENERAL: Well-developed, well-nourished patient in NAD. SKIN: Warm and dry. No rash. Right third, fourth and fifth digit and maceration and webspace, erythema. HEAD: Normocephalic. Atraumatic. EYES: Pupils equal and round. No scleral icterus. No injection or drainage. ENT: No nasal bleeding or discharge. Mucous membranes pink and moist. NECK: Supple. Trachea midline. CARDIOVASCULAR: Regular rate and rhythm. S1, S2 noted. No murmur appreciated. RESPIRATORY: No accessory muscle use. Clear to auscultation. Breath sounds equal bilaterally. GASTROINTESTINAL: Abdomen soft, non-tender, nondistended. Normoactive bowel sounds x4. NEUROLOGICAL: Awake and alert. No obvious cranial nerve deficits. Motor grossly within normal limits. 5/5 muscle strength in bilateral upper and lower extremities. Normal speech. PSYCHIATRIC: Appropriate mood and affect; insight and judgment normal. A/P Problem List: (1) Cellulitis ICD Code: L03.90 - Cellulitis, unspecified Status: Acute Assessment and Plan This is a 87-year-old male patient with a known medical history of hyperlipidemia, hypertension, GERD and polio who presented to the ED with right third, fourth and fifth digit cellulitis failed outpatient antibiotic treatment. Cellulitis of the right third, fourth and fifth digit toes Failed outpatient antibiotic therapy With leukocytosis on presentation, improving. Lactic acid 2.0. Wound culture is growing Pseudomonas sensitive to Levaquin, Afebrile. Vital signs are stable. Right foot x-ray reviewed showing unremarkable exam. Podiatry consulted, appreciate further input and recommendations. Saw patient today, wound change today. Recommendations for discharge tomorrow on PO antibiotics. Continue IV antibiotics for 1 more day today. Anticipate discharge tomorrow on Levaquin. Control pain, Linn available p.o. for pain scale. Hypertension, chronic: Monitor BP trends. Continue p.o. home medications. Hyperlipidemia, chronic: Continue home statin. DVT prophylaxis: SCDs. Lovenox. Discharge Planning DC Tomorrow with [facility] PT, dressing changes. Problem Qualifiers (1) Cellulitis: Qualified Codes: L03.031 - Cellulitis of right toe Irish Mckay Nov 03, 2017 08:44
[2017-11-03] MEDS: LEVOFLOXACIN 750 MG PREMIX INJ 150 ML IV SCH (10:35)
[2017-11-03] MEDS: LOSARTAN 50 MG TAB PO SCH (10:36)
[2017-11-03] MEDS: CALCIUM CARBONATE 1.25 GM (CA 500 MG) TAB PO SCH (10:37)
[2017-11-03] MEDS: CHOLECALCIFEROL (VIT D3) 1000 UNIT TAB PO SCH (10:37)
[2017-11-03] MEDS: ASPIRIN EC 81 MG TABEC PO SCH (10:37)
[2017-11-03] MEDS: HYDROCHLOROTHIAZIDE 25 MG TAB PO SCH (10:37)
[2017-11-03] MEDS: PANTOPRAZOLE SOD 20 MG DELAYED RELEASE TAB PO SCH (10:37)
[2017-11-03] MEDS: DOCUSATE SODIUM 50 MG/SENNA 8.6 MG TAB PO SCH ×2 (10:38→21:58)
[2017-11-03] MEDS ORDERED: HYDR-3516 PO (12:02)
[2017-11-03] MEDS: VANCOMYCIN 1,000 MG/NS 250 ML IV SCH ×2 (12:29)
[2017-11-03] MEDS: ENOXAPARIN SODIUM 40 MG/0.4 ML SYRINGE SQ SCH (14:47)
--- NOTE | 2017-11-03 16:05 | HHI.PR ---
Subjective Remarks Patient seen bedside this a.m. with present. Patient denies any nausea vomiting fevers or chills. Would like to go home today. Objective Vital Signs Date Time Temp Pulse Resp B/P (MAP) Pulse Ox O2 Delivery O2 Flow Rate FiO2 11/03/17 15:37 96.3 74 20 135/61 (85) 95 11/03/17 11:26 97.8 86 20 126/65 (85) 96 11/03/17 09:00 95 21 11/03/17 07:50 97.1 71 20 147/64 (91) 95 11/03/17 04:00 97.5 80 17 128/78 (95) 96 11/03/17 00:00 97.7 79 18 131/76 (94) 95 11/02/17 20:00 93 21 11/02/17 20:00 97.5 84 16 137/83 (101) 94 I/O 11/02/17 11/02/17 11/02/17 11/03/17 11/03/17 11/03/17 07:00 15:00 23:00 07:00 15:00 23:00 Intake Total 580 ml 360 ml 400 ml Output Total 200 ml 600 ml Balance -200 ml 580 ml 360 ml -600 ml 400 ml Intake Oral 580 ml 360 ml IV Total 400 ml Output Urine Total 200 ml 600 ml # Voids 2 2 2 # Bowel Movements 0 1 1 Result Diagram: 11/02/17 0835 11/02/17 0835 Objective Remarks Lower extremity physical exam: Vascular: Dorsalis pedis 1/4 , posterior tibial 1/4. Capillary refill time within normal limits to digits 5 bilateral foot. Edema present in resolving right foot Neuro: Gross sensation intact to bilateral lower extremity. Pinpoint sensation within normal limits. No hyperalgesia noted to bilateral lower extremity Dermatology: Normal temperature and turgor to bilateral lower extremity. Interdigital maceration with ulceration noted to second, third, fourth interspace; fourth interspace most severely affected. No open sinus or portal noted, no probe to bone noted. Musculoskeletal: Tender to palpation to right interdigital spaces to 3 and 4. Hammertoes noted 2 through 5 right foot. Assessment and Plan Assessment and Plan 87-year-old male with right foot infection Patient examined and evaluated Culture growing Pseudomonas Okay to DC by podiatry tomorrow, patient would benefit from 1 more day of IV antibiotics Recommend oral antibiotic transition possible Levaquin; Discussed with Irish ALARCON Recommend home health care with trilogy -dressings to consist of Silvadene as it does have pseudomonal coverage and dry sterile dressing MRI negative for abscess, clinical improvement noted and no suspicion for abscess. MRI also negative for any osteomyelitis. Patient is to follow-up with Dr. Lassiter in [facility], as he states that who he usually sees and who he would like to follow-up with Irish Swartz DPM Nov 03, 2017 16:05
[2017-11-03] MEDS: PRAVASTATIN SOD 80 MG TAB PO SCH (21:58)
[2017-11-04] VITALS: BP 117/59; PULSE 74; RESP 20; TEMP 97.6; O2SAT 96
[2017-11-04 00:32] VITALS: O2SAT 95
[2017-11-04 07:21] LABS: CREATININE 1.4 MG/DL (0.60-1.30)
[2017-11-04 08:00] VITALS: BP 129/60; PULSE 86; RESP 18; TEMP 98.3; O2SAT 97
[2017-11-04] MEDS: CALCIUM CARBONATE 1.25 GM (CA 500 MG) TAB PO SCH (08:59)
[2017-11-04] MEDS: PANTOPRAZOLE SOD 20 MG DELAYED RELEASE TAB PO SCH (08:59)
[2017-11-04] MEDS: ASPIRIN EC 81 MG TABEC PO SCH (08:59)
[2017-11-04] MEDS: HYDROCHLOROTHIAZIDE 25 MG TAB PO SCH (08:59)
[2017-11-04] MEDS: CHOLECALCIFEROL (VIT D3) 1000 UNIT TAB PO SCH (09:00)
[2017-11-04] MEDS: DOCUSATE SODIUM 50 MG/SENNA 8.6 MG TAB PO SCH (09:00)
[2017-11-04] MEDS: LOSARTAN 50 MG TAB PO SCH (09:01)
[2017-11-04] MEDS: LEVOFLOXACIN 750 MG PREMIX INJ 150 ML IV SCH (09:02)
[2017-11-04] MEDS ORDERED: LEVO750T3 PO (11:08)
--- NOTE | 2017-11-04 11:08 | HHI.PR ---
Objective Vitals Vital Signs Date Time Temp Pulse Resp B/P (MAP) Pulse Ox O2 Delivery O2 Flow Rate FiO2 11/04/17 00:32 95 21 11/04/17 00:00 97.6 74 20 117/59 (78) 96 11/03/17 20:00 96.9 89 20 123/68 (86) 95 11/03/17 15:37 96.3 74 20 135/61 (85) 95 11/03/17 11:26 97.8 86 20 126/65 (85) 96 I/O 11/03/17 11/03/17 11/03/17 11/04/17 11/04/17 11/04/17 07:00 15:00 23:00 07:00 15:00 23:00 Intake Total 1202 ml 240 ml Output Total 600 ml 350 ml Balance -600 ml 1202 ml -110 ml Intake Oral 802 ml 240 ml IV Total 400 ml Output Urine Total 600 ml 350 ml Result Diagram: 11/02/17 0835 11/04/17 0620 A/P Problem List: (1) Cellulitis ICD Code: L03.90 - Cellulitis, unspecified Status: Acute Problem Qualifiers (1) Cellulitis: Qualified Codes: L03.031 - Cellulitis of right toe Zac Kim Nov 04, 2017 11:08
[2017-11-04] MEDS ORDERED: PHARMACY ORDERED LAB ONE (11:45)
[2017-11-04 12:00] VITALS: BP 138/66; PULSE 84; RESP 18; TEMP 98.3; O2SAT 97
[2017-11-04] MEDS: VANCOMYCIN 1,000 MG/NS 250 ML IV SCH ×2 (12:34)
--- NOTE | 2017-11-04 14:32 | HHI.DS ---
Discharge Summary Admission Date Nov 01, 2017 at 13:27 Discharge Date: Nov 04, 2017 Admitting Diagnosis Cellulitis, right 4th and 5th toes (1) Cellulitis ICD Code: L03.90 - Cellulitis, unspecified Status: Acute Procedures None Brief History - From Admission Written by Irish Mckay, acting as scribe for Dr. Washington on 11/01/17 at 18:18. This is a 87-year-old male patient with a known medical history of hyperlipidemia, hypertension, GERD and polio who presented to the ED with right third, fourth and fifth digit cellulitis failed outpatient antibiotic treatment. Patient states that his symptoms started roughly 3 weeks ago with some mild discomfort between his toes, called his primary care doctor who started him on an antifungal cream. For a week or so the symptoms continued to persist and even worsen which brought him to the supervisor [employer] who started him on doxycycline 3 days ago for cellulitis. Patient states his toes have worsened which led to his presentation. Patient denies any recent illness including fever, chills, cough, shortness of breath, abdominal pain, nausea, vomiting, diarrhea or dysuria. Patient's denies any pain. Does have a history of polio and left leg with history of surgery, recent fall breaking his right acromion process which did not require surgery. CBC/BMP: 11/02/17 0835 11/04/17 0620 Significant Findings Laboratory Tests Test 11/02/17 08:35 11/04/17 06:20 White Blood Count 12.3 TH/MM3 (4.0-11.0) Neutrophils (%) (Auto) 73.7 % (16.0-70.0) Monocytes (%) (Auto) 8.3 % (0.0-8.0) Neutrophils # (Auto) 9.1 TH/MM3 (1.8-7.7) Monocytes # (Auto) 1.0 TH/MM3 (0-0.9) Blood Urea Nitrogen 22 MG/DL (7-18) Estimat Glomerular Filtration Rate 63 ML/MIN (>89) 48 ML/MIN (>89) Creatinine 1.40 MG/DL (0.60-1.30) Imaging Last Impressions Foot MRI 11/02/17 0000 Signed Impressions: Service Date/Time: Thursday, November 02, 2017 10:44 - CONCLUSION: Soft tissue swelling and laboratory change/enhancement at the fourth and fifth digits without osteomyelitis seen. Sohan Snow MD Foot X-Ray 11/01/17 0000 Signed Impressions: Service Date/Time: Wednesday, November 01, 2017 11:43 - CONCLUSION: Unremarkable exam for patient's age. Nick Jean MD PE at Discharge GENERAL: Well-developed, well-nourished patient in NAD. SKIN: Warm and dry. No rash. Right third, fourth and fifth digit and maceration and webspace, erythema. HEAD: Normocephalic. Atraumatic. EYES: Pupils equal and round. No scleral icterus. No injection or drainage. ENT: No nasal bleeding or discharge. Mucous membranes pink and moist. NECK: Supple. Trachea midline. CARDIOVASCULAR: Regular rate and rhythm. S1, S2 noted. No murmur appreciated. RESPIRATORY: No accessory muscle use. Clear to auscultation. Breath sounds equal bilaterally. GASTROINTESTINAL: Abdomen soft, non-tender, nondistended. Normoactive bowel sounds x4. NEUROLOGICAL: Awake and alert. No obvious cranial nerve deficits. Motor grossly within normal limits. 5/5 muscle strength in bilateral upper and lower extremities. Normal speech. PSYCHIATRIC: Appropriate mood and affect; insight and judgment normal. Hospital Course Estimated 7-year-old male who originally presented to the hospital on 11/01/17 because of 3 week history of discomfort between his toes of his right lower extremity. Primary doctor started him on some antifungal cream in which his symptoms continued. Patient was started on doxycycline 3 days prior to admission because of cellulitis. His toes did not get any better so he came to emergency department for evaluation. Patient was evaluated in emergency department recommended admission the hospital. He did undergo radiological studies which did not indicate any abscess that required surgical intervention. Patient failed outpatient management with doxycycline and was admitted the hospital with vancomycin, Levaquin. Cultures were taken which did indicate multiple organisms which were sensitive to Levaquin. Environmental Health Safety Manager was consulted and followed the patient during his stay in the hospital. No surgical intervention was needed. Recommending home health care with outpatient wound management. Outpatient follow-up. Continuation of Levaquin upon discharge. Creatinine clearance did mildly worsen while his stay in the hospital. Levaquin will need to be dosed for renal. Patient clinically stable this time. Home health care has been arranged. Will discharge home after his dose of vancomycin today. Patient will follow-up with primary medical doctor, supervisor [employer]. Pt Condition on Discharge: Stable Discharge Disposition: Disch w/ Home Health Serv Discharge Time: > 30 minutes Discharge Instructions DIET: Follow Instructions for: As Tolerated, No Restrictions Activities you can perform: Regular-No Restrictions Activities to Avoid: Driving for 24 hrs Follow up Referrals: Home Health with [facility] PCP Follow-up - 1 Week Podiatry - 1 Week with Carlos Lassiter III, DPM New Medications: Levofloxacin (Levofloxacin) 750 Mg Tablet 250 MG PO DAILY for Infection for 12 Days, #4 TAB 0 Refills Walker Rolling/GetGo (Walker Rolling/GetGo) 1 Mis Mis EA .XX DIRECTED, #1 Hydrocodone/Acetaminophen (Hydrocodone-Acetamin 5-325 mg) 5 Mg-325 Mg Tablet 1 TAB PO Q4H PRN for pain management for 5 Days, #30 TAB Continued Medications: Aspirin DR (Aspirin EC) 81 Mg Tabdr 81 MG PO DAILY for Blood Clot Prevention, TAB 0 Refills Calcium Carbonate (Calcium 600) 600 Mg Calcium (1500 Mg) Tab 600 MG PO DAILY for Nutritional Supplement, TAB Cholecalciferol (Vitamin D-1000) 1,000 Unit Tab 1000 UNITS PO DAILY for Nutritional Supplement, #1 BOTTLE 0 Refills Hdrymuuuoh-Jvtmiygkep-Sszitodmyeikldzwsdb (Tribenzor) 40-10-25 mg Tab 1 TAB PO DAILY for Blood Pressure Management, #30 TAB 0 Refills Omeprazole (Omeprazole) 20 Mg Tab 20 MG PO DAILY for Reflux, #30 TAB 0 Refills Simvastatin (Simvastatin) 40 Mg Tab 40 MG PO HS for Cholesterol Management, #30 TAB 0 Refills Zac Kim Nov 04, 2017 14:32
== END 2017-11-04 16:36 | disposition home health service (06) | DRG 603 ==
LOC: PHED 09:09 → PHEDA 13:27 → UNDOADMOB 13:27 → PHEDA 13:31 → PH3B 14:09 → PHEDA 14:09 → OBSVTOIN 11-02 15:12 → UNDODISOB 11-04 16:36
PROVIDERS: ADMIT Hospitalist; ATTEND Hospitalist
DX: L03.031 Cellulitis of right toe (principal); I10 Essential (primary) hypertension; E78.5 Hyperlipidemia, unspecified; K21.9 Gastro-esophageal reflux disease without esophagitis; Z86.12 Personal history of poliomyelitis; Z86.19 Personal history of other infectious and parasitic diseases
CPT/HCPCS: 73630; 73720; 80048; 82565; 82948; 83036; 83605; 85025; 87070; 87077; 87185; 87186; 87205; 96365; 96372; 96375; A9579; G0378; G8987-GP; G8988-GP; J1650; J1956; J2405; J3370; J7050; L3260